=== PATIENT | male | born 1970 | race Caucasian/White ===

== ENCOUNTER 2019-01-24 19:42 | Emergency (ER) | payer OTHER ==
[2019-01-24 20:37] LABS: PLATELET COUNT 235 10^3/uL (150-400)
--- NOTE | 2019-01-24 20:40 | EDPHY ---
H & P Time Seen by Provider: 01/24/19 20:01 HPI/ROS: CHIEF COMPLAINT: Fluttering in the chest x3 days HISTORY OF PRESENT ILLNESS: Patient was at urgent care [facility]. He went for a feeling of fluttering sensation in his chest for 3 days. It is intermittent and he feels like his heart will skip or jump a beat or like he has a "adrenaline barillas" but no syncope, no chest pain or shortness of breath. Symptoms mild and intermittent. He was seen at urgent care and then referred here for formal EKG evaluation. REVIEW OF SYSTEMS: Eye: no change in vision ENT: Left ear symptoms for 3 days Cardiac: no chest pain or syncope Pulmonary: no cough or SOB Abdomen: no vomiting, diarrhea, abdominal pain Musculoskeletal: no back pain Skin: no rash Neuro: no headache Constitutional: no fever : no urinary symptoms A comprehensive 10 point review of systems is otherwise negative aside from elements mentioned in the history of present illness. PAST MEDICAL HISTORY: Includes GERD, borderline high blood pressure, hyperlipidemia, migraines Father bypass is 60 years old, otherwise no other family history of venous thromboembolism or coronary disease Social history: Has reduced caffeine recently. General Appearance: Alert and conversant, cooperative. Eyes: No scleral icterus. ENT, Mouth: Normal mucous membranes. Respiratory: Normal respiratory effort, breath sounds equal, lungs are clear to auscultation. Cardiovascular: Regular rate and rhythm. No murmur. Gastrointestinal: Abdomen is soft and non tender. Neurological: Alert, face symmetric, normal motor and sensory in extremities. Skin: Warm and dry, no rashes. Musculoskeletal: No peripheral edema. No calf tenderness. Psychiatric: Not agitated. Emergency Department course/MDM: Patient does have PAC on monitor. His EKG shows inferior Q-wave in 3 and F but I do not think this represents acute or subacute ischemia. Plan for CBC chemistry TSH and troponin, discharge with outpatient follow-up if negative. 2200: Results discussed, troponin and TSH negative, electrolytes normal. Ears examined, both tympanic membranes are normal. PAC noted on monitor in the ED which happened during his symptoms, likely the cause. Smoking Status: Never smoked Constitutional: Initial Vital Signs Temperature (C) 37.3 C 01/24/19 19:44 Heart Rate 86 01/24/19 19:44 Respiratory Rate 18 01/24/19 19:44 Blood Pressure 164/124 H 01/24/19 19:44 O2 Sat (%) 97 01/24/19 19:44 O2 Delivery Mode Room Air Allergies/Adverse Reactions: No Known Allergies Allergy (Unverified 01/24/19 19:47) Home Medications: Medication Instructions Recorded Statin 01/24/19 Medical Decision Making - Diagnostics EKG Interpretation: 12-lead EKG interpreted by me; official reading is in computer system. My interpretation is sinus rhythm rate 88, left atrial enlargement, inferior Q- waves noted. - Data Points Laboratory Results: Laboratory Results 01/24/19 20:25 01/24/19 20:25 01/24/19 01/24/19 20:25 20:25 WBC 11.17 10^3/uL H 10^3/uL (3.80-9.50) RBC 5.98 10^6/uL 10^6/uL (4.40-6.38) Hgb 17.2 g/dL g/dL (13.7-17.5) Hct 50.1 % % (40.0-51.0) MCV 83.8 fL fL (81.5-99.8) MCH 28.8 pg pg (27.9-34.1) MCHC 34.3 g/dL g/dL (32.4-36.7) RDW 12.3 % % (11.5-15.2) Plt Count 235 10^3/uL 10^3/uL (150-400) MPV 10.9 fL fL (8.7-11.7) Neut % (Auto) 66.5 % % (39.3-74.2) Lymph % (Auto) 23.2 % % (15.0-45.0) Hart % (Auto) 7.8 % % (4.5-13.0) Eos % (Auto) 1.7 % % (0.6-7.6) Baso % (Auto) 0.4 % % (0.3-1.7) Nucleat RBC Rel Count 0.0 % % (0.0-0.2) Absolute Neuts (auto) 7.44 10^3/uL H 10^3/uL (1.70-6.50) Absolute Lymphs (auto) 2.59 10^3/uL 10^3/uL (1.00-3.00) Absolute Monos (auto) 0.87 10^3/uL H 10^3/uL (0.30-0.80) Absolute Eos (auto) 0.19 10^3/uL 10^3/uL (0.03-0.40) Absolute Basos (auto) 0.04 10^3/uL 10^3/uL (0.02-0.10) Absolute Nucleated RBC 0.00 10^3/uL 10^3/uL (0-0.01) Immature Gran % 0.4 % % (0.0-1.1) Immature Gran # 0.04 10^3/uL 10^3/uL (0.00-0.10) Sodium 137 mEq/L mEq/L (135-145) Potassium 4.0 mEq/L mEq/L (3.5-5.2) Chloride 100 mEq/L mEq/L (97-110) Carbon Dioxide 25 mEq/l mEq/l (22-31) Anion Gap 12 mEq/L mEq/L (6-14) BUN 17 mg/dL mg/dL (7-23) Creatinine 1.2 mg/dL mg/dL (0.7-1.3) Estimated GFR > 60 Glucose 87 mg/dL mg/dL (70-100) Calcium 9.8 mg/dL mg/dL (8.5-10.4) Troponin I < 0.012 ng/mL ng/mL (0.000-0.034) TSH 1.550 uIU/mL uIU/mL (0.465-4.680) Departure - Departure Disposition: Home, Routine, Self-Care Clinical Impression: Palpitations Condition: Good Instructions: Heart Palpitations (ED) Referrals: Janeth Falcon MD [Primary Care Provider] - As per Instructions Son Guevara MD [Medical Doctor] - 5-7 days, call for appt.
--- NOTE | 2019-01-24 20:41 | CPEKG ---
Test Reason : OPEN Blood Pressure : / mmHG Vent. Rate : 088 BPM Atrial Rate : 084 BPM P-R Int : 151 ms QRS Dur : 096 ms QT Int : 354 ms P-R-T Axes : 048 -28 043 degrees QTc Int : 429 ms Sinus rhythm Probable left atrial enlargement Inferior infarct, old Confirmed by Markos Ryan ([id number]) on 01/24/2019 8:41:21 PM Referred By: Markos Ryan Confirmed By:Markos Ryan
[2019-01-24 22:06] VITALS: BP 148/79
== END 2019-01-24 22:07 | disposition home or self-care (01) ==
DX: R00.2 Palpitations (principal)